=== PATIENT | female | born 1980 | race Caucasian/White ===

== ENCOUNTER 2019-09-21 09:57 | Outpatient (CLI) | payer OTHER ==
[2019-09-21] VITALS (7 sets, daily range): BP systolic 109–136; BP diastolic 54–98
[~2019-09-21] VITALS: Ht 172.7 cm; Wt 71.7 kg
--- NOTE | ~2019-09-21 | D ---
[facility] [place] [address] DISCHARGE SUMMARY Name: WENDY HESTER Room #: DEP EVA Armas#: [id number] Admission: 09/21/19 Attend Phys: Félix Mcleod MD Discharge: 09/22/19 Date of : 76 Report #: [id number] THIS REPORT FOR: cc: KEV - Family physician unknown KEV - Family physician unknown Félxi Mcleod MD ~ THIS REPORT FOR: //name// CC: Dr. Isrrael ANGULO unknown Félix Mcleod DATE OF SERVICE: 09/22/2019 PREOPERATIVE DIAGNOSIS: Sick sinus syndrome. PROCEDURE PERFORMED: Pacemaker implantation. HISTORY: The patient is a 38-year-old female with a history of gastric bypass surgeries x 2 and worsening symptomatic sinus bradycardia, here for a dual-chamber pacemaker implantation. She underwent successful implantation of a dual-chamber device placed from the right side. HOSPITAL COURSE: She was monitored in the CCU overnight and did well. She did have a lot of pain at the incision site, but appeared to be healing very nicely with no hematoma or bruising. Of note, she does have chronic pain issues. On the day of discharge, she denied any fevers or chills, chest pain, shortness of breath, PND or orthopnea. On physical exam, heart was regular rate and rhythm. Lungs were clear to auscultation bilaterally. Her incision was healing nicely. Chest x-ray showed stable lead position with no pneumothorax and her device interrogation showed normal device function. As such, she was deemed stable for discharge home and will go home on the same medications that she came in on. She will followup in 7-10 days with me and also see me back in 3 months. By: [id number] Félix Mcleod MD /nt
--- NOTE | ~2019-09-21 | P ---
[facility] [place] [address] PROCEDURE REPORT Name: WENDY HESTER Room #: [address] [place] [address] EVA QuevedoUriah#: [id number] Admission: 09/21/19 Attend Phys: Félix Mcleod MD Discharge: Date of : 76 Report #: [id number] THIS REPORT FOR: cc: KEV - Family physician unknown KEV - Family physician unknown Félix Mcleod MD ~ CC: KEV Mcleod DATE OF SERVICE: 09/21/2019 PREOPERATIVE DIAGNOSES: 1. Symptomatic bradycardia. 2. Sick sinus syndrome. POSTOPERATIVE DIAGNOSES: 1. Symptomatic bradycardia. 2. Sick sinus syndrome. PROCEDURES PERFORMED: Dual-chamber pacemaker implantation. HISTORY: The patient is a 38-year-old female with history of prior gastric sleeve with eventual revision and a gastric bypass surgery who has lost over a 150 pounds and has developed worsening symptomatic sinus bradycardia over the past several months. Symptoms include lightheadedness, presyncope and some syncope with documented heart rates in the 30s to 40s. She is here for dual chamber pacemaker implantation. ANESTHESIA: The patient underwent MAC anesthesia with no anesthesia related complications. DESCRIPTION OF PROCEDURE: The patient underwent informed consent. We discussed the details of the procedure including the risks, which include but not limited to bleeding, infection, vascular damage, cardiac perforation and pneumothorax. She understood these risks and willing to proceed. The patient was brought to the EP laboratory in a fasting and sedated state and prepped and draped in a sterile fashion. She went into a right-sided venogram showing patency of the right axillary vein. Next, I injected lidocaine and created a pocket over the prepectoral fascia. Then, access was obtained twice to the right axillary vein. Initially, I had some difficulty, so a second venogram was performed. Next, I placed sheaths using the modified Seldinger technique and a lead was positioned into the right mid ventricular septum and the atrial lead was placed in the right atrial appendage both with adequate pacing and sensing thresholds. Leads were sutured to the prepectoral fascia. The device was connected and tug tests were performed. The device was found to [facility] [address] [place] [address] PROCEDURE REPORT Name: WENDY HESTER Room #: 212-P [facility]#: [id number] Admission: 09/21/19 Attend Phys: Félix Mcleod MD Discharge: Date of : 76 Report #: [id number] be functioning normally. I did suture the device to the pocket. I then irrigated the pocket with vancomycin solution and then closed the pocket in 2 layers using 2-0 for the deep layer, 3-0 for the mid layer. Surgical glue was placed outer skin layer. The patient awoke neurologically and hemodynamically intact. No complications and no significant bleeding. The implanted pacemaker was a Medtronic model number W3DR01, serial #[id number]. This is an MRI compatible device. The atrial and ventricular leads were Medtronic leads. Atrial lead was a model #5076, serial #[id number]. The RV lead was a model #5076 #[id number]. Atrial lead demonstrated P-wave of 2 millivolts, pacing impedance of 475 ohms and the pacing threshold 0.5 volts at 0.4 milliseconds. The RV lead demonstrated R-wave of 6 millivolts, pacing impedance of 684 ohms and pacing threshold 0.7 volts at 0.4 milliseconds. The device was programmed to the AAIR/DDDR 70-150 mode. CONCLUSIONS: 1. Successful dual-chamber pacemaker implantation. 2. Satisfactory right ventricular and right atrial pacing and sensing thresholds. By: [id number] Félix Mcleod MD /nt
[2019-09-21 11:13] LABS: ABSOLUTE NEUTROPHILS 2.4 thou/uL (1.4-8.2); BASOPHILS 0.8 % (0.0-2.0); EOSINOPHILS 3.4 % (0.0-3.0); HEMATOCRIT 34.4 % (37.0-47.0); HEMOGLOBIN 11.2 gm/dL (12.0-15.0); LYMPHOCYTES 24.4 % (24.0-44.0); MCH 31.3 pg (26.0-34.0); MCHC 32.5 g/dL (28.0-37.0); MCV 96.2 fL (80.0-100.0); MONOCYTES 10.8 % (1.0-8.0); PLATELET COUNT 168 thou/uL (150-400); POLYS 60.6 % (36.0-66.0); RBC 3.58 mil/uL (4.20-5.00); RDW 13.1 % (10.5-14.5); WBC 3.9 thou/uL (4.0-11.0)
[2019-09-21 11:27] LABS: PROTIME 10.7 Seconds (9.3-11.4)
[2019-09-21 11:30] LABS: CALCIUM 8.8 mg/dL (8.5-10.1); CREATININE 0.8 mg/dL (0.6-1.0); POTASSIUM 3.4 mmol/L (3.5-5.1)
[2019-09-21] MEDS ORDERED: BUSPIRONE HCL10 MG PO (11:43)
[2019-09-21] MEDS ORDERED: CALCIUM500 MG PO (11:44)
[2019-09-21] MEDS ORDERED: LEXAPRO20 MG PO (11:45)
[2019-09-21] MEDS ORDERED: ESTRACE1 MG PO (11:48)
[2019-09-21] MEDS ORDERED: OXYCONTIN10 M1 PO (11:49)
[2019-09-21] MEDS ORDERED: TRAZODONE HCL100 MG PO (11:50)
[2019-09-21] MEDS ORDERED: BELSOMRA20 MG PO (11:50)
[2019-09-22] VITALS: BP 87/55
[2019-09-22 04:00] VITALS: BP 98/63
--- NOTE | 2019-09-22 06:01 | NUR ---
PT RESTING QUIETLY IN BED WITH MOTHER AT BEDSIDE OFFERING SUPPORT, PRN AND SCHEDULED PAIN MEDS GIVEN FOR CHRONIC BACK PAIN AND NEW INCISIONAL SHOULDER PAIN, VSS, INCISION CDI, IMMOBILIZER IN PLACE THRU THE NOC, WILL CON'T TO MONITOR PER PPOC.
[2019-09-22 07:20] VITALS: BP 100/66
--- NOTE | 2019-09-22 11:32 | NUR ---
RECEIVED PT. CARE AROUND 0730; PT. IN THE RESTHROOM; DURING AM ASSESSMENT PT. ASKED ABOUT DIET; REQUEST COFFEE; PER ASSEMBLER [employer] PIPES OK FOR PT. TO DRINK COFFEE; REQUESTED PRN PAIN MEDICATION AROUND 0930; NO DUE PRN PAIN MEDICATION; STONE LAYER ROUNDING PT. C/O PAIN; PRN PAIN MEDICATION GIVEN BY STONE LAYER WITH AM MEDICATION; R. SIDE C/D/I; NO EDEMA OR HEMATOMA; A-PACED ON THE MONITOR; ASSESSMENT CHARGED; FOLLOWED POC; D/C ORDERS ON PLACE; PT. NOTIFIED; NO NEW MEDICATION ORDER; PT. REQUESTED PRN PAIN MEDICATION FOR HOME; ASSEMBLER [employer] PIPES NOTIFIED; NO NEW ORDERS; PT. NOTIFIED;
[2019-09-22 11:36] VITALS: BP 100/66
== END 2019-09-22 12:02 | disposition home or self-care (01) ==
LOC: CATH 09:57 → 2N 15:38 → CATH 15:47 → ENTRNSPT 09-22 11:54 → EDTRNSPTSTS 09-22 11:56 → CATH 09-22 12:02
PROVIDERS: Internal Medicine Cardiovascular Disease
DX: I49.5 Sick sinus syndrome (principal); F32.89 Other specified depressive episodes; F41.9 Anxiety disorder, unspecified; Z98.890 Other specified postprocedural states; Z79.899 Other long term (current) drug therapy; Z82.49 Family history of ischemic heart disease and other diseases of the circulatory system; Z98.84 Bariatric surgery status; Z90.710 Acquired absence of both cervix and uterus; Z88.8 Allergy status to other drugs, medicaments and biological substances
CPT/HCPCS: 62110; 62900; 70005

== ENCOUNTER → 2019-10-14 | Outpatient (CLI) | payer OTHER ==
[~2019-10-14] MED LIST: BELSOMRA20 MG PO; BUSPIRONE HCL10 MG PO; CALCIUM500 MG PO; ESTRACE1 MG PO; LEXAPRO20 MG PO; OXYCONTIN10 M1 PO; TRAZODONE HCL100 MG PO
== END ==
LOC: SJCVCIMAG 11:59
PROVIDERS: ATTEND Internal Medicine Cardiovascular Disease
DX: M79.601 Pain in right arm (principal); Z95.0 Presence of cardiac pacemaker; Z87.891 Personal history of nicotine dependence

== ENCOUNTER → 2020-06-17 | Outpatient (CLI) | payer OTHER | LOC: MRI 10:22 | PROVIDERS: ATTEND Specialist | DX: M54.5 Low back pain (principal); G89.29 Other chronic pain ==